=== PATIENT | female | born 1955 | race Caucasian/White ===

== ENCOUNTER 2017-06-27 19:31 | Observation (INO) | payer MEDICAID ==
[2017-06-27 19:43] VITALS: BMI 27.4
[2017-06-27] MEDS ORDERED: Sodium Chloride 0.9% 500 ML IV STA (19:47)
--- NOTE | 2017-06-27 20:04 | ED PDOC ---
Arrival/HPI <Armaan Villavicencio - Last Filed: 06/28/17 01:06> - General Historian: Patient - History of Present Illness Time/Duration: Other (2 days) Symptom Onset: Sudden Symptom Course: Worsening Quality: Aching, Stabbing Severity Level: 10 <Leticia Champion - Last Filed: 06/28/17 01:53> - General Chief Complaint: Back Pain Time Seen by Provider: 06/27/17 19:41 - History of Present Illness Narrative History of Present Illness (Text): 06/27/17 20:04 61yr old female presents today with left sided back pain x 2 days. pt states yesterday she was just sitting around and developed severe pain in the left flank which has been worsening. pt denies abdominal pain. no n/v/d/c. no cp or sob. no dizziness or weakness. no dysuria. + urinary frequency. pt states she took tylenol for pain without improvement. pt states pain improves when in current laying position. (Leticia Champion) Past Medical History - Provider Review Nursing Documentation Reviewed: Yes - Travel History Have you recently traveled outside [place] w/in the past 3 mons?: No - Infectious Disease Hx of Infectious Diseases: None - Tetanus Immunization Tetanus Immunization: Unknown - Past Medical History Past Medical History: Non-Contributing - Cardiac Hx Cardiac Disorders: Yes Hx Hypertension: Yes - Pulmonary Hx Respiratory Disorders: No - Neurological Hx Neurological Disorder: No - HEENT Hx HEENT Disorder: Yes Other/Comment: glasses - Renal Hx Renal Disorder: No - Endocrine/Metabolic Hx Endocrine Disorders: No - Hematological/Oncological Hx Blood Disorders: No - Integumentary Hx Dermatological Disorder: No - Musculoskeletal/Rheumatological Hx Musculoskeletal Disorders: Yes Hx Arthritis: Yes - Gastrointestinal Hx Gastrointestinal Disorders: No - Genitourinary/Gynecological Hx Genitourinary Disorders: No - Psychiatric Hx Psychophysiologic Disorder: No Hx Depression: No Hx Emotional Abuse: No Hx Physical Abuse: No Hx Substance Use: No - Past Surgical History Past Surgical History: Non-Contributing - Surgical History Hx Orthopedic Surgery: Yes (BACK SX, RIGHT HAND SX) Other/Comment: neck sx - Anesthesia Hx Anesthesia: Yes Hx Anesthesia Reactions: No - Suicidal Assessment Feels Threatened In Home Enviroment: No <Leticia Champion - Last Filed: 06/28/17 01:53> Family/Social History - Physician Review Nursing Documentation Reviewed: Yes Family/Social History: Unknown Family HX Smoking Status: Never Smoked Hx Alcohol Use: No Hx Substance Use: No Hx Substance Use Treatment: No <Leticia Champion - Last Filed: 06/28/17 01:53> Allergies/Home Meds <Armaan Villavicencio - Last Filed: 06/28/17 01:06> <Leticia Champion - Last Filed: 06/28/17 01:53> Allergies/Adverse Reactions: Allergies No Known Allergies Allergy (Verified 02/19/17 18:38) Home Medications: Home Meds Medication Instructions Recorded Confirmed Verapamil [Verapamil HCl] 180 mg PO DAILY 10/20/12 06/27/17 Aspirin [Adult Low Dose Aspirin EC] 81 mg PO DAILY 02/19/17 06/27/17 Simvastatin [Zocor] 40 mg PO DAILY 02/19/17 06/27/17 Sotalol [Betapace] 80 mg PO DAILY 02/19/17 06/27/17 Diclofenac Sodium 100 gm TP DAILY 06/27/17 06/27/17 Docusate Sodium [Colace] 100 mg PO DAILY 06/27/17 06/27/17 Ergocalciferol (Vitamin D2) 50,000 unit PO DAILY 06/27/17 06/27/17 [Vitamin D2] Lactulose [Generlac] 10 gm PO DAILY PRN 06/27/17 06/27/17 Naproxen [EC-Naprosyn] 500 mg PO DAILY 06/27/17 06/27/17 Omeprazole 40 mg PO DAILY 06/27/17 06/27/17 Tizanidine HCl [Zanaflex] 4 mg PO DAILY 06/27/17 06/27/17 Vitamin B Complex [Vitamin B50 1 cap PO DAILY 06/27/17 06/27/17 Super Complex] Review of Systems - Review of Systems Constitutional: absent: Fatigue, Fevers Respiratory: absent: SOB, Cough Cardiovascular: absent: Chest Pain, Palpitations Gastrointestinal: absent: Abdominal Pain, Nausea, Vomiting Genitourinary Female: Frequency. absent: Dysuria, Hematuria, Vaginal Bleeding, Vaginal Discharge Musculoskeletal: Back Pain (left flank pain). absent: Arthralgias, Neck Pain Skin: absent: Rash, Pruritis Neurological: absent: Headache, Dizziness Psychiatric: absent: Anxiety, Depression, Suicidal Ideation <NavarroAmrik reillyjonathan Dowling - Last Filed: 06/28/17 01:53> Physical Exam Vital Signs Reviewed: Yes Temperature: Afebrile Blood Pressure: Hypertensive Pulse: Regular Respiratory Rate: Normal Appearance: Positive for: Well-Appearing, Non-Toxic, Uncomfortable Pain Distress: None Mental Status: Positive for: Alert and Oriented X 3 - Systems Exam Head: Present: Atraumatic Mouth: Present: Moist Mucous Membranes Neck: Present: Normal Range of Motion Respiratory/Chest: Present: Clear to Auscultation, Good Air Exchange. No: Respiratory Distress, Accessory Muscle Use Cardiovascular: Present: Regular Rate and Rhythm, Normal S1, S2. No: Murmurs Abdomen: No: Tenderness, Distention, Rebound, Guarding Back: Present: Normal Inspection, CVA Tenderness, Paraspinal Tenderness, Other ( left flank tenderness). No: Midline Tenderness Upper Extremity: Present: Normal ROM Lower Extremity: Present: Normal ROM Neurological: Present: GCS=15, Speech Normal Skin: Present: Warm, Dry, Normal Color. No: Rashes Psychiatric: Present: Alert, Oriented x 3 <Leticia Champion Josey - Last Filed: 06/28/17 01:53> Vital Signs Temp Pulse Resp BP Pulse Ox 06/27/17 22:00 83 18 137/82 98 06/27/17 19:46 97.8 F 77 18 150/95 H 98 Medical Decision Making <Armaan Villavicencio - Last Filed: 06/28/17 01:06> <AkiraLeticia T - Last Filed: 06/28/17 01:53> ED Course and Treatment: 06/27/17 20:12 61yr old female with left flank pain x 2 days. cbc wnl cmp wnl lipase wnl cxr; wnl ua; wnl ct; FINDINGS: LOWER THORAX: No infiltrate seen in the lung bases. ABDOMEN: LIVER: No acute abnormality of the liver identified. GALLBLADDER AND BILE DUCTS: No CT evidence of acute cholecystitis. No evidence of significant biliary ductal dilatation. PANCREAS: No CT evidence of acute pancreatitis. SPLEEN: No acute abnormality of the spleen identified. ADRENALS: No acute abnormality of the adrenal glands identified. KIDNEYS AND URETERS: No acute abnormality of the kidneys identified. No evidence of significant hydrouereteronephrosis. STOMACH AND BOWEL: No acute abnormality of the stomach, small bowel or colon identified. No evidence of bowel obstruction. APPENDIX: Normal appendix is not seen, however, there are no significant inflammatory changes visualized in the expected location of the appendix to suggest appendicitis. Recommend clinical correlation. PELVIS: BLADDER: No acute abnormality of the bladder identified. REPRODUCTIVE:No acute abnormality of the reproductive organs is seen. No acute abnormality of the uterus identified. No evidence of large adnexal masses. ABDOMEN and PELVIS: INTRAPERITONEAL SPACE: No evidence of free intraperitoneal air or fluid. RETROPERITONEAL SPACE: No evidence of retroperitoneal hemorrhage. BONES/JOINTS: Marked degenerative disc disease at L1-2. There is a posterior disc bulge at this level, which does appear to spinal canal stenosis. SOFT TISSUES: No acute abnormality of the visualized soft tissues is seen. VASCULATURE: No evidence of abdominal aortic aneurysm. No evidence of periaortic hemorrhage. LYMPH NODES: No evidence of diffuse lymphadenopathy. IMPRESSION: - No evidence of significant acute intra-abdominal process. - Marked degenerative disc disease at L1-2. There is a posterior disc bulge at this level, causing spinal canal stenosis. - See above for remaining findings. 06/28/17 01:00 pt with continued pain; inability to ambulate; case discussed with dr. mancilla; he wants patient admitted to the hospitalist. case discussed with dr. cardenas; accepts observational status admission for intractable back pain, djd, herniated disc, inablity to ambulate impression; inability to ambulate, intractable back pain admit observational status to med/surg (Leticia Champion) - Lab Interpretations Lab Results: 06/27/17 20:00 06/27/17 20:00 Lab Results 06/27/17 20:08: Urine Color Yellow, Urine Appearance Clear, Urine pH 7.5, Ur Specific [place] 1.015, Urine Protein Negative, Urine Glucose (UA) Negative, Urine Ketones Negative, Urine Blood Negative, Urine Nitrate Negative, Urine Bilirubin Negative, Urine Urobilinogen 0.2, Ur Leukocyte Esterase Negative 06/27/17 20:00: WBC 4.9, RBC 4.80, Hgb 13.0, Hct 39.3, MCV 81.9, MCH 27.1, MCHC 33.1, RDW 14.6 H, Plt Count 195, MPV 10.3, Gran % 58.0, Lymph % (Auto) 34.4, Dent % (Auto) 6.2 H, Eos % (Auto) 1.2 L, Baso % (Auto) 0.2, Gran # 2.81, Lymph # (Auto) 1.7, Dent # (Auto) 0.3, Eos # (Auto) 0.1, Baso # (Auto) 0.01 06/27/17 20:00: Sodium 143, Potassium 4.5, Chloride 102, Carbon Dioxide 32, Anion Gap 14, BUN 13, Creatinine 0.6 L, Est GFR ( Amer) > 60, Est GFR ( Non-Af Amer) > 60, Random Glucose 104, Calcium 10.0, Total Bilirubin 0.5, AST 33 , ALT 30, Alkaline Phosphatase 61, Total Protein 7.6, Albumin 4.2, Globulin 3.5 , Albumin/Globulin Ratio 1.2, Lipase 46 - RAD Interpretation Radiology Orders: 06/27/17 19:46 CHEST PORTABLE [RAD] Stat 06/27/17 20:31 ABD & PELVIS IV CONTRAST ONLY [CT] Stat - Medication Orders Current Medication Orders: Discontinued Medications Sodium Chloride (Sodium Chloride 0.9%) 500 mls @ 999 mls/hr IV .Q31M STA Stop: 06/27/17 20:17 Last Admin: 06/27/17 20:07 Dose: 999 mls/hr eMAR Start Stop Document 06/27/17 20:07 CNR (Rec: 06/27/17 20:07 CNR [id number]) Intravenous Solution Start Date 06/27/17 Start Time 20:07 Morphine Sulfate (Morphine) 2 mg IVP STAT STA Stop: 06/27/17 20:31 Last Admin: 06/27/17 20:43 Dose: 2 mg MAR Pain Assessment Document 06/27/17 20:43 CNR (Rec: 06/27/17 20:44 CNR [id number]) Pain Reassessment Is this a pain reassessment? Yes Location Left, Right or Bilateral Left Upper or Lower Lower Pain Location Body Site Back Description Description Constant IVP Administration Document 06/27/17 20:43 CNR (Rec: 06/27/17 20:44 CNR [id number]) Charges for Administration # of IVP Administrations 1 - PA / PRISON GUARD / Resident Statement JEFERSON has reviewed & agrees with the documentation as recorded. / has examined the patient and agrees with the treatment plan. <Armaan Villavicencio - Last Filed: 06/28/17 01:06> Disposition/Present on Arrival <Armaan Villavicencio - Last Filed: 06/28/17 01:06> - Present on Arrival Any Indicators Present on Arrival: No History of DVT/PE: No History of Uncontrolled Diabetes: No Urinary Catheter: No History of Decub. Ulcer: No History Surgical Site Infection Following: None - Disposition Have Diagnosis and Disposition been Completed?: Yes Disposition Time: 01:50 Patient Plan: Observation <Leticia Champion - Last Filed: 06/28/17 01:53> - Disposition Diagnosis: Intractable back pain Disposition: HOSPITALIZED Condition: FAIR
[2017-06-27 20:10] LABS: BASO # 0.01 K/mm3 (0.0-2.0); BASO % 0.2 % (0.0-3.0); EOS # 0.1 (0.0-0.7); EOS % 1.2 % (1.5-5.0); GRAN # 2.81 (1.4-6.5); LYMPH # 1.7 (1.2-3.4); LYMPH % 34.4 % (22.0-35.0); MEAN CELL VOLUME 81.9 fl (80.0-105.0); MEAN CORPUSCULAR HEMOGLOBIN 27.1 pg (25.0-35.0); MEAN CORPUSCULAR HGB CONC 33.1 g/dl (31.0-37.0); MEAN PLATELET VOLUME 10.3 fl (7.0-11.0); MONO # 0.3 (0.1-0.6); MONO % 6.2 % (1.0-6.0); RBC 4.8 10^6/uL (3.5-6.1); RED CELL DISTRIBUTION WIDTH 14.6 % (11.5-14.5); WHITE BLOOD COUNT 4.9 10^3/ul (4.5-11.0)
[2017-06-27 20:18] LABS: PH,URINE 7.5 (4.7-8.0); URINE BILIRUBIN NEGATIVE (NEGATIVE); URINE BLOOD NEGATIVE (NEGATIVE); URINE GLUCOSE (UA) NEGATIVE (NEGATIVE); URINE LEUKOCYTE ESTERASE NEGATIVE Leu/uL (NEGATIVE); URINE PROTEIN NEGATIVE mg/dL (<30 mg/dL); URINE UROBILINOGEN 0.2 E.U./dL (<1 E.U./dL)
[2017-06-27 20:20] LABS: URINE APPEARANCE CLEAR (CLEAR); URINE COLOR YELLOW (YELLOW)
[2017-06-27 20:22] LABS: ALB/GLOB RATIO 1.2 (1.1-1.8); ALBUMIN 4.2 g/dL (3.0-4.8); ALT/SGPT 30 U/L (7-56); AST/SGOT 33 U/L (14-36); BLOOD UREA NITROGEN 13 mg/dL (7-21); GFR AFRICAN-AMERICAN > 60; GFR NON-AFRICAN AMERICAN > 60; LIPASE 46 U/L (23-300)
[2017-06-27] MEDS ORDERED: Morphine 2 mg/ml ISec IVP STA (20:30)
[2017-06-27] MEDS ORDERED: Iohexol 350 MG/100 ML VIAL ONE (21:04)
--- NOTE | 2017-06-27 22:15 | CT ---
EXAM: CT Abdomen and Pelvis With Intravenous Contrast EXAM DATE/TIME: 06/27/2017 8:31 PM CLINICAL HISTORY: 61 years old, female; Pain; Other: Low back; Additional info: Left flank/left sided pain TECHNIQUE: Axial computed tomography images of the abdomen and pelvis with intravenous contrast. All CT scans at this facility use one or more dose reduction techniques, viz.: automated exposure control; ma/kV adjustment per patient size (including targeted exams where dose is matched to indication; i.e. head); or iterative reconstruction technique. Coronal and sagittal reformatted images were created and reviewed. CONTRAST: 97 mL of omnipaque 350 administered intravenously. COMPARISON: No relevant prior studies available. FINDINGS: LOWER THORAX: No infiltrate seen in the lung bases. ABDOMEN: LIVER: No acute abnormality of the liver identified. GALLBLADDER AND BILE DUCTS: No CT evidence of acute cholecystitis. No evidence of significant biliary ductal dilatation. PANCREAS: No CT evidence of acute pancreatitis. SPLEEN: No acute abnormality of the spleen identified. ADRENALS: No acute abnormality of the adrenal glands identified. KIDNEYS AND URETERS: No acute abnormality of the kidneys identified. No evidence of significant hydrouereteronephrosis. STOMACH AND BOWEL: No acute abnormality of the stomach, small bowel or colon identified. No evidence of bowel obstruction. APPENDIX: Normal appendix is not seen, however, there are no significant inflammatory changes visualized in the expected location of the appendix to suggest appendicitis. Recommend clinical correlation. PELVIS: BLADDER: No acute abnormality of the bladder identified. REPRODUCTIVE:No acute abnormality of the reproductive organs is seen. No acute abnormality of the uterus identified. No evidence of large adnexal masses. ABDOMEN and PELVIS: INTRAPERITONEAL SPACE: No evidence of free intraperitoneal air or fluid. RETROPERITONEAL SPACE: No evidence of retroperitoneal hemorrhage. BONES/JOINTS: Marked degenerative disc disease at L1-2. There is a posterior disc bulge at this level, which does appear to spinal canal stenosis. SOFT TISSUES: No acute abnormality of the visualized soft tissues is seen. VASCULATURE: No evidence of abdominal aortic aneurysm. No evidence of periaortic hemorrhage. LYMPH NODES: No evidence of diffuse lymphadenopathy. IMPRESSION: - No evidence of significant acute intra-abdominal process. - Marked degenerative disc disease at L1-2. There is a posterior disc bulge at this level, causing spinal canal stenosis. - See above for remaining findings.
[2017-06-28] MEDS ORDERED: MethylPREDNISolone 40 mg Vial IVP STA (02:04)
--- NOTE | 2017-06-28 02:23 | CP.PCM.HP ---
<Nathaniel Mart - Last Filed: 06/28/17 02:16> History of Present Illness - History of Present Illness History of Present Illness: CC: Left flank/back pain HPI: Patient is a 61 year old female who presents to [facility] via ambulance complaining of left sided flank/back pain. Patient reports pain has progressively worsened in the past 24 hours. Patient indicates this is the first time she has experienced such pain. Patient reports pain is mid flank/ back with minimal radiation of pain, sharp, worse with movement especially walking. Patietn denies heavy lifting, trauma, or sudden movement associated with onset of symptoms. Patient has taken Tylenol over the counter without help. Patient denies loss of bowel or urine, or saddle anesthesia. Patient denies dysuria, hematuria, fever, chills, nausea, vomiting, weakness, focal weakness, chest pain, shortness of breath. PMH: Cardiac arrhythmia PSH: C6-C7 cervical vertebrae surgery SocHx: Denies tobacco, ETOh, ID FMH: Non-contributory ALL: NKDA MEDS: MAR reviewed Present on Admission - Present on Admission Any Indicators Present on Admission: No Review of Systems - Review of Systems All systems: reviewed and no additional remarkable complaints except (otherwise mentioned in HPI) Past Patient History - Infectious Disease Hx of Infectious Diseases: None - Tetanus Immunizations Tetanus Immunization: Unknown - Past Social History Smoking Status: Never Smoked Alcohol: None Drugs: Denies - CARDIAC Hx Cardiac Disorders: Yes Hx Hypertension: Yes - PULMONARY Hx Respiratory Disorders: No - NEUROLOGICAL Hx Neurological Disorder: No - HEENT Hx HEENT Problems: Yes Other/Comment: glasses - RENAL Hx Chronic Kidney Disease: No - ENDOCRINE/METABOLIC Hx Endocrine Disorders: No - HEMATOLOGICAL/ONCOLOGICAL Hx Blood Disorders: No - INTEGUMENTARY Hx Dermatological Problems: No - MUSCULOSKELETAL/RHEUMATOLOGICAL Hx Musculoskeletal Disorders: Yes Hx Arthritis: Yes - GASTROINTESTINAL Hx Gastrointestinal Disorders: No - GENITOURINARY/GYNECOLOGICAL Hx Genitourinary Disorders: No - PSYCHIATRIC Hx Psychophysiologic Disorder: No Hx Depression: No Hx Emotional Abuse: No Hx Physical Abuse: No Hx Substance Use: No - SURGICAL HISTORY Hx Orthopedic Surgery: Yes (BACK SX, RIGHT HAND SX) Other/Comment: neck sx - ANESTHESIA Hx Anesthesia: Yes Hx Anesthesia Reactions: No Meds Allergies/Adverse Reactions: Allergies Allergy/AdvReac Type Severity Reaction Status Date / Time No Known Allergies Allergy Verified 02/19/17 18:38 Physical Exam - Constitutional Appears: Non-toxic - Head Exam Head Exam: ATRAUMATIC, NORMAL INSPECTION, NORMOCEPHALIC - Eye Exam Eye Exam: EOMI, PERRL - ENT Exam ENT Exam: Mucous Membranes Moist - Neck Exam Neck exam: Positive for: Full Rom - Respiratory Exam Respiratory Exam: Clear to Auscultation Bilateral, NORMAL BREATHING PATTERN. absent: Rales, Rhonchi, Wheezes - Cardiovascular Exam Cardiovascular Exam: REGULAR RHYTHM, +S1, +S2. absent: JVD, Systolic Murmur - GI/Abdominal Exam GI & Abdominal Exam: Normal Bowel Sounds, Soft. absent: Distended, Firm, Guarding, Tenderness - Extremities Exam Extremities exam: Positive for: normal inspection, pedal pulses present. Negative for: calf tenderness - Back Exam Back exam: CVA tenderness (L), paraspinal tenderness, tenderness, vertebral tenderness Additional comments: Left sided flank pain associated with palpation and ambulation, T6-T8 dermatomes - Neurological Exam Neurological exam: Alert, Oriented x3 Additional comments: Gait is limited secondary to pain associated with left sided back pain, patient able to move all four extremities past midline, able to follow simple commands - Psychiatric Exam Psychiatric exam: Normal Affect, Normal Mood - Skin Skin Exam: Dry, Normal Color, Warm Results - Vital Signs Recent Vital Signs: Last Vital Signs Temp 97.8 F 06/27/17 19:46 Pulse 83 06/27/17 22:00 Resp 18 06/27/17 22:00 BP 137/82 06/27/17 22:00 Pulse Ox 98 06/27/17 22:00 - Labs Result Diagrams: 06/27/17 20:00 06/27/17 20:00 Assessment & Plan - Assessment and Plan (Free Text) Assessment: 61 year old female who presents to [facility] via ambulance complaining of left sided flank/back pain. Patient reports pain has progressively worsened in the past 24 hours. Patient will be admitted for intractable back pain and inability to ambulate. Plan: 1. Intractable back pain - Left sided - Patient unable to ambulate, pain associated with T6-T8 level - No alarm symptoms of saddle anesthesia, urinary or bowel incontinence found - Abd/Pelvis CT shwoign degenerative disc disease at L1-L2, posterior disc bulging causing spinal stenosis - Bedrest - Fall precaution - Physical therapy - Morphine 1mg IV Q2H prn - Solumedrol 40mg for anti-inflammatory effects - Evaluate in AM with primary team for need of MRI - Further evaluation of C6-C7 spinal surgery for evidence of hardware and compatability with MRI DVT/GI ppx - SCD - Protonix Case and plan discussed with attending - Date & Time Date: 06/28/17 Time: 03:07 <Curt Go MD - Last Filed: 06/28/17 06:18> Results - Vital Signs Recent Vital Signs: Last Vital Signs Temp 97.5 F L 06/28/17 03:16 Pulse 86 06/28/17 03:16 Resp 20 06/28/17 03:16 BP 140/89 06/28/17 03:16 Pulse Ox 98 06/27/17 22:00 - Labs Result Diagrams: 06/27/17 20:00 06/27/17 20:00 Attending/Attestation - Attestation I have personally seen and examined this patient.: Yes I have fully participated in the care of the patient.: Yes I have reviewed all pertinent clinical information: Yes Notes (Text): -I agree with the above H&P completed by the resident physician with the following additions and/or changes: -The patient is a 61 year old woman admitted for observation due to inability to ambulate due to intractable lower back and flank pain. The etiology of her acute pain is very likely due to L1-L2 spinal canal stenosis (noted on CT-A/P) and entire rest of her ED work-up negative. She doesn't exhibit any "alarm" symptoms. Initial plan was for discharge home from ED with pain meds but patient was unable to ambulate despite numerous attempts. Therefore, admitted for pain control and PT evaluation.
[2017-06-28] MEDS: Morphine 2 mg/ml ISec IVP PRN ×2 (02:49→10:05)
[2017-06-28] MEDS ORDERED: Pneumococcal 23-Valent Vaccine IM ONE (03:59)
[2017-06-28] MEDS ORDERED: Influenza Vaccine 60 mcg/0.5 mL SYR (4YR UP) IM ONE (03:59)
[2017-06-28] MEDS ORDERED: Pantoprazole 40 mg EC Tab PO SCH (06:00)
[2017-06-28 08:16] VITALS: RESP 19; O2SAT 95
--- NOTE | 2017-06-28 09:24 | RAD ---
HISTORY: Left flank pain COMPARISON: 10/17/2014. FINDINGS: LUNGS: The lungs are well inflated and clear. PLEURA: No significant pleural effusion identified, no pneumothorax apparent. CARDIOVASCULAR: Normal. OSSEOUS STRUCTURES: No significant abnormalities. VISUALIZED UPPER ABDOMEN: Normal. OTHER FINDINGS: None. IMPRESSION: No active pulmonary disease.
[2017-06-28] MEDS ORDERED: Ergocalciferol 50,000 Intl Units Cap PO SCH (10:00)
[2017-06-28] MEDS ORDERED: Verapamil 180 mg ER Tab PO SCH (10:00)
--- NOTE | 2017-06-28 12:21 | CP.PCM.DIS ---
<ElpidioTisha - Last Filed: 06/28/17 15:59> Provider - Provider Date of Admission: 06/28/17 01:03 Attending physician: Kayleigh Coleman MD Primary care physician: Adalberto Shafer MD Time Spent in preparation of Discharge (in minutes): 35 Hospital Course - Lab Results Lab Results: Most Recent Lab Values WBC 4.9 10^3/ul (4.5-11.0) 06/27/17 20:00 RBC 4.80 10^6/uL (3.5-6.1) 06/27/17 20:00 Hgb 13.0 g/dL (12.0-16.0) 06/27/17 20:00 Hct 39.3 % (36.0-48.0) 06/27/17 20:00 MCV 81.9 fl (80.0-105.0) 06/27/17 20:00 MCH 27.1 pg (25.0-35.0) 06/27/17 20:00 MCHC 33.1 g/dl (31.0-37.0) 06/27/17 20:00 RDW 14.6 % (11.5-14.5) H 06/27/17 20:00 Plt Count 195 10^3/uL (120.0-450.0) 06/27/17 20:00 MPV 10.3 fl (7.0-11.0) 06/27/17 20:00 Gran % 58.0 % (50.0-68.0) 06/27/17 20:00 Lymph % (Auto) 34.4 % (22.0-35.0) 06/27/17 20:00 Lipscomb % (Auto) 6.2 % (1.0-6.0) H 06/27/17 20:00 Eos % (Auto) 1.2 % (1.5-5.0) L 06/27/17 20:00 Baso % (Auto) 0.2 % (0.0-3.0) 06/27/17 20:00 Gran # 2.81 (1.4-6.5) 06/27/17 20:00 Lymph # (Auto) 1.7 (1.2-3.4) 06/27/17 20:00 Lipscomb # (Auto) 0.3 (0.1-0.6) 06/27/17 20:00 Eos # (Auto) 0.1 (0.0-0.7) 06/27/17 20:00 Baso # (Auto) 0.01 K/mm3 (0.0-2.0) 06/27/17 20:00 Sodium 143 mmol/L (132-148) 06/27/17 20:00 Potassium 4.5 mmol/L (3.6-5.0) 06/27/17 20:00 Chloride 102 mmol/L (98-107) 06/27/17 20:00 Carbon Dioxide 32 mmol/L (21-33) 06/27/17 20:00 Anion Gap 14 (10-20) 06/27/17 20:00 BUN 13 mg/dL (7-21) 06/27/17 20:00 Creatinine 0.6 mg/dl (0.7-1.2) L 06/27/17 20:00 Est GFR ( Amer) > 60 06/27/17 20:00 Est GFR (Non-Af Amer) > 60 06/27/17 20:00 Random Glucose 104 mg/dL (70-110) 06/27/17 20:00 Calcium 10.0 mg/dL (8.4-10.5) 06/27/17 20:00 Total Bilirubin 0.5 mg/dL (0.2-1.3) 06/27/17 20:00 AST 33 U/L (14-36) 06/27/17 20:00 ALT 30 U/L (7-56) 06/27/17 20:00 Alkaline Phosphatase 61 U/L (38-126) 06/27/17 20:00 Total Protein 7.6 g/dL (5.8-8.3) 06/27/17 20:00 Albumin 4.2 g/dL (3.0-4.8) 06/27/17 20:00 Globulin 3.5 gm/dL 06/27/17 20:00 Albumin/Globulin Ratio 1.2 (1.1-1.8) 06/27/17 20:00 Lipase 46 U/L (23-300) 06/27/17 20:00 Urine Color Yellow (YELLOW) 06/27/17 20:08 Urine Appearance Clear (CLEAR) 03/07/18 20:08 Urine pH 7.5 (4.7-8.0) 06/27/17 20:08 Ur Specific Ey[place] 1.015 (1.005-1.035) 06/27/17 20:08 Urine Protein Negative mg/dL (<30 mg/dL) 06/27/17 20:08 Urine Glucose (UA) Negative mg/dL (NEGATIVE) 06/27/17 20:08 Urine Ketones Negative mg/dL (NEGATIVE) 06/27/17 20:08 Urine Blood Negative (NEGATIVE) 06/27/17 20:08 Urine Nitrate Negative (NEGATIVE) 06/27/17 20:08 Urine Bilirubin Negative (NEGATIVE) 06/27/17 20:08 Urine Urobilinogen 0.2 E.U./dL (<1 E.U./dL) 06/27/17 20:08 Ur Leukocyte Esterase Negative Liza/uL (NEGATIVE) 06/27/17 20:08 - Hospital Course Hospital Course: CC: Left flank/back pain HPI: Patient is a 61 year old female who presents to [facility] via ambulance complaining of left sided flank/back pain. Patient reports pain has progressively worsened in the past 24 hours. Patient indicates this is the first time she has experienced such pain. Patient reports pain is mid flank/ back with minimal radiation of pain, sharp, worse with movement especially walking. Patietn denies heavy lifting, trauma, or sudden movement associated with onset of symptoms. Patient has taken Tylenol over the counter without help. Patient denies loss of bowel or urine, or saddle anesthesia. Patient denies dysuria, hematuria, fever, chills, nausea, vomiting, weakness, focal weakness, chest pain, shortness of breath. CT showed disc bulge and stenosis at L1-L2. NSR @ 74 bpm. MRI to evaluate cervical spine. Patient is medically stable for discharge, able to move her lower extremities, Physical therapy saw patient and said patient can have oupatient physical therapy. - Date & Time of H&P Date of H&P: 06/28/17 Time of H&P: 12:18 Discharge Exam - Head Exam Head Exam: ATRAUMATIC, NORMAL INSPECTION, NORMOCEPHALIC - Eye Exam Eye Exam: EOMI, Normal appearance Pupil Exam: NORMAL ACCOMODATION, PERRL - ENT Exam ENT Exam: Mucous Membranes Moist - Respiratory Exam Respiratory Exam: Clear to PA & Lateral, NORMAL BREATHING PATTERN. absent: Accessory Muscle Use - Cardiovascular Exam Cardiovascular Exam: REGULAR RHYTHM, +S1, +S2 - GI/Abdominal Exam GI & Abdominal Exam: Normal Bowel Sounds, Soft. absent: Tenderness - Extremities Exam Extremities exam: full ROM - Back Exam Back exam: FULL ROM - Neurological Exam Neurological exam: Alert, CN II-XII Intact, Oriented x3, Reflexes Normal - Psychiatric Exam Psychiatric exam: Normal Affect, Normal Mood - Skin Skin Exam: Dry, Intact, Normal Color, Warm Discharge Plan - Follow Up Plan Condition: FAIR Disposition: HOME/ ROUTINE Instructions: Low Back Pain in Adults Additional Instructions: follow up with DR. Shafer for further management with outpatient physical therapy return to ED if urine or bowel incontinence, weakness of lower extremities, sharp pain Referrals: Adalberto Shafer MD [Primary Care Provider] - <Kayleigh Coleman - Last Filed: 06/29/17 12:11> Provider - Provider Date of Admission: 06/28/17 01:03 Attending physician: Kayleigh Coleman MD Primary care physician: Adalberto Shafer MD Hospital Course - Lab Results Lab Results: Most Recent Lab Values WBC 4.9 10^3/ul (4.5-11.0) 06/27/17 20:00 RBC 4.80 10^6/uL (3.5-6.1) 06/27/17 20:00 Hgb 13.0 g/dL (12.0-16.0) 06/27/17 20:00 Hct 39.3 % (36.0-48.0) 06/27/17 20:00 MCV 81.9 fl (80.0-105.0) 06/27/17 20:00 MCH 27.1 pg (25.0-35.0) 06/27/17 20:00 MCHC 33.1 g/dl (31.0-37.0) 06/27/17 20:00 RDW 14.6 % (11.5-14.5) H 06/27/17 20:00 Plt Count 195 10^3/uL (120.0-450.0) 06/27/17 20:00 MPV 10.3 fl (7.0-11.0) 06/27/17 20:00 Gran % 58.0 % (50.0-68.0) 06/27/17 20:00 Lymph % (Auto) 34.4 % (22.0-35.0) 06/27/17 20:00 Lipscomb % (Auto) 6.2 % (1.0-6.0) H 06/27/17 20:00 Eos % (Auto) 1.2 % (1.5-5.0) L 06/27/17 20:00 Baso % (Auto) 0.2 % (0.0-3.0) 06/27/17 20:00 Gran # 2.81 (1.4-6.5) 06/27/17 20:00 Lymph # (Auto) 1.7 (1.2-3.4) 06/27/17 20:00 Lipscomb # (Auto) 0.3 (0.1-0.6) 06/27/17 20:00 Eos # (Auto) 0.1 (0.0-0.7) 06/27/17 20:00 Baso # (Auto) 0.01 K/mm3 (0.0-2.0) 06/27/17 20:00 Sodium 143 mmol/L (132-148) 06/27/17 20:00 Potassium 4.5 mmol/L (3.6-5.0) 06/27/17 20:00 Chloride 102 mmol/L (98-107) 06/27/17 20:00 Carbon Dioxide 32 mmol/L (21-33) 06/27/17 20:00 Anion Gap 14 (10-20) 06/27/17 20:00 BUN 13 mg/dL (7-21) 06/27/17 20:00 Creatinine 0.6 mg/dl (0.7-1.2) L 06/27/17 20:00 Est GFR ( Amer) > 60 06/27/17 20:00 Est GFR (Non-Af Amer) > 60 06/27/17 20:00 Random Glucose 104 mg/dL (70-110) 06/27/17 20:00 Calcium 10.0 mg/dL (8.4-10.5) 06/27/17 20:00 Total Bilirubin 0.5 mg/dL (0.2-1.3) 06/27/17 20:00 AST 33 U/L (14-36) 06/27/17 20:00 ALT 30 U/L (7-56) 06/27/17 20:00 Alkaline Phosphatase 61 U/L (38-126) 06/27/17 20:00 Total Protein 7.6 g/dL (5.8-8.3) 06/27/17 20:00 Albumin 4.2 g/dL (3.0-4.8) 06/27/17 20:00 Globulin 3.5 gm/dL 06/27/17 20:00 Albumin/Globulin Ratio 1.2 (1.1-1.8) 06/27/17 20:00 Lipase 46 U/L (23-300) 06/27/17 20:00 Urine Color Yellow (YELLOW) 06/27/17 20:08 Urine Appearance Clear (CLEAR) 06/27/17 20:08 Urine pH 7.5 (4.7-8.0) 06/27/17 20:08 Ur Specific [place] 1.015 (1.005-1.035) 06/27/17 20:08 Urine Protein Negative mg/dL (<30 mg/dL) 06/27/17 20:08 Urine Glucose (UA) Negative mg/dL (NEGATIVE) 06/27/17 20:08 Urine Ketones Negative mg/dL (NEGATIVE) 06/27/17 20:08 Urine Blood Negative (NEGATIVE) 06/27/17 20:08 Urine Nitrate Negative (NEGATIVE) 06/27/17 20:08 Urine Bilirubin Negative (NEGATIVE) 06/27/17 20:08 Urine Urobilinogen 0.2 E.U./dL (<1 E.U./dL) 06/27/17 20:08 Ur Leukocyte Esterase Negative Liza/uL (NEGATIVE) 06/27/17 20:08 Attending/Attestation - Attestation I have personally seen and examined this patient.: Yes I have fully participated in the care of the patient.: Yes I have reviewed all pertinent clinical information, including history, physical exam and plan: Yes Notes (Text): 06/29/17 12:08 Medical record note made by the resident after discussion with my direction and input after the patient was personally seen and examined by me. I have reviewed the chart and agree that the record accurately reflects by personal performance of the history, physical exam, data review, and medical decision-making, in the course for the patient. I have also personally directed the plan of care. 61 yrs old female was admitted with intractable back pain.There is no focal deficit.Patient pain has improved.She is ambulatory.She was evaluated by Physical therapy prior to discharge.She does not require any Narcotic for pain control at the time of discharge. Patient case was discussed with patient PCP. She will be discharged home and will follow up with PCP
--- NOTE | 2017-06-28 17:55 | CARD ---
APPROVED REPORT EKG Measurement Heart [id number] <Conclusion> Normal sinus rhythm Normal ECG
[2017-06-28 18:31] VITALS: BP 100/55; PULSE 57; TEMP 97.9
== END 2017-06-28 18:50 | disposition home or self-care (01) ==
LOC: ED 19:31 → ERH 06-28 01:03 → 3RNO 06-28 02:28
PROVIDERS: ADMIT Internal Medicine; ATTEND Internal Medicine
DX: M48.061 Spinal stenosis, lumbar region without neurogenic claudication (principal); M51.36 Other intervertebral disc degeneration, lumbar region; Z79.82 Long term (current) use of aspirin
CPT/HCPCS: 71045; 74177; 80053; 81003; 83690; 85025; 93005; 96374; 97116; 97162; 99284; G0378; G8978; G8979; J2270; J2920; J7040; Q9967